=== PATIENT | female | born 1995 | race American Indian/Alaskan Native ===

== ENCOUNTER 2021-12-15 22:23 | Emergency (ER) | payer MEDICAID ==
[2021-12-15 22:57] VITALS: BP 105/64
[2021-12-16 00:27] LABS: Bacteria,Urine 2+ /HPF (Negative); Bilirubin,Urine NEG (Negative); Blood,Urine NEG (Negative); Color,Urine Yellow (Yellow); Mucus,Urine 3+ /HPF; Protein,Urine <15 mg/dL mg/dL (Negative)
[2021-12-16 00:47] LABS: Basophils % (Auto) 0.6 % (0.0-1.8); Eosinophils # (Auto) 0.2 K/mm3 (0.0-0.4); Eosinophils % (Auto) 3.2 % (0.0-4.3); Hematocrit 40.3 % (30.3-42.9); Lymphocytes # (Auto) 2.9 K/mm3 (1.2-5.4); Lymphocytes % (Auto) 43.8 % (13.4-35.0); Mean Corpuscular HGB Conc 32 % (30-34); Mean Corpuscular Volume 89 fl (79-97); Monocytes # (Auto) 0.7 K/mm3 (0.0-0.8); Monocytes % (Auto) 10.7 % (0.0-7.3); Platelet Count 301 K/mm3 (140-440); Red Blood Count 4.55 M/mm3 (3.65-5.03); Red Cell Distribution Width 13.4 % (13.2-15.2)
[2021-12-16 01:34] LABS: Alanine Aminotransferase 11 units/L (7-56); Albumin 4.6 g/dL (3.9-5); BUN/Creatinine Ratio 13; Blood Urea Nitrogen 10 mg/dL (7-17); Hemolysis Index 10
== END 2021-12-16 03:30 | disposition left against medical advice (07) ==
LOC: ED 22:23
DX: R10.2 Pelvic and perineal pain (principal); Z53.21 Procedure and treatment not carried out due to patient leaving prior to being seen by health care provider
CPT/HCPCS: 36415; 80053; 81001; 84703; 85025; 87086

== ENCOUNTER 2022-04-13 07:17 | Emergency (ER) | payer MEDICAID | END 2022-04-13 09:15 | disposition left against medical advice (07) | LOC: ED 07:17 | DX: S69.90XA Unspecified injury of unspecified wrist, hand and finger(s), initial encounter (principal); Z53.21 Procedure and treatment not carried out due to patient leaving prior to being seen by health care provider; W18.39XA Other fall on same level, initial encounter; Y93.89 Activity, other specified; Y92.89 Other specified places as the place of occurrence of the external cause; Y99.8 Other external cause status ==